=== PATIENT | male | born 1970 | race Caucasian/White ===

== ENCOUNTER 2016-12-06 08:09 | Day surgery (SDC) | payer OTHER ==
[2016-12-05 12:21] VITALS: BMI 24.1
[~2016-12-06 08:09] MED LIST: LACTATED RINGERS 1,000 ML IV SCH
[2016-12-06 08:39] VITALS: RESP 16; TEMP 97.4
[2016-12-06] MEDS ORDERED: LIDOCAINE 1% 20 ML VIAL (10MG/ML) FOR IV START INTRADERMA ONE (08:51)
[2016-12-06] MEDS ORDERED: LIDOCAINE 1% INJ 10MG/ML (20 ML MDV) ONE (09:21)
[2016-12-06] MEDS ORDERED: PROPOFOL 10 MG/ML 20 ML VIAL IV ONE (09:21)
--- NOTE | 2016-12-06 09:22 | P.GSHP ---
History of Present Illness H&P Date: 12/06/16 Chief Complaint: GI bleed This a 46-year-old male who presents today for colonoscopy. He's had issues rectal bleeding. Patient is known external hemorrhoids. Past Medical History Additional Past Medical History / Comment(s): migraines, insomnia,hemorrhoids History of Any Multi-Drug Resistant Organisms: None Reported Past Surgical History: No Surgical Hx Reported Past Anesthesia/Blood Transfusion Reactions: No Reported Reaction Past Psychological History: Anxiety Smoking Status: Former smoker Past Alcohol Use History: None Reported Additional Past Alcohol Use History / Comment(s): quit smoking 1998, smoked for about 20 yrs, 1 PPD Past Drug Use History: None Reported - Past Family History Mother Family Medical History: No Reported History Medications and Allergies Home Medications Medication Instructions Recorded Confirmed Type ALPRAZolam [Xanax] 0.5 mg PO DIRECTED PRN 12/05/16 12/06/16 History Fish Oil/Dha/Epa [Fish Oil 1,200 1 each PO DAILY 12/05/16 12/05/16 History mg Fish Oil] Rizatriptan Benzoate [Maxalt] 10 mg PO DIRECTED PRN 12/05/16 12/06/16 History Zolpidem [Ambien] 5 mg PO HS PRN 12/05/16 12/06/16 History Allergies Allergy/AdvReac Type Severity Reaction Status Date / Time codeine Allergy Anaphylaxis Verified 12/06/16 08:39 frovatriptan [From Frova] Allergy Nausea & Verified 12/06/16 08:39 Vomiting Surgical - Exam Vital Signs Temp Pulse Resp BP Pulse Ox 97.4 F L 60 16 149/90 99 12/06/16 08:37 12/06/16 08:37 12/06/16 08:37 12/06/16 08:37 12/06/16 08:37 - General well developed, no distress - Eyes PERRL - ENT normal pinna - Neck no masses - Respiratory normal expansion - Cardiovascular Rhythm: regular - Abdomen Abdomen: soft, non tender Assessment and Plan Plan: GI bleed. We'll perform colonoscopy.
--- NOTE | 2016-12-06 09:47 | P.OP ---
Date of Procedure: 12/06/16 Preoperative Diagnosis: GI bleed Postoperative Diagnosis: Internal and external hemorrhoids Sigmoid colon polyp Procedure(s) Performed: Colonoscopy Anesthesia: MAC Surgeon: Jordy Moreira Pathology: other (Sigmoid colon polyp) Condition: stable Disposition: PACU Description of Procedure: Patient's placed on the endoscopy table in the lateral position. He received IV sedation. Digital rectal exam was performed revealed external and internal hemorrhoids. The flexible colonoscope was then placed patient anus and passed throughout the entire colon. The ileocecal valve was visualized. Cecum, ascending and transverse colon appeared normal. The descending colon was normal. In the sigmoid colon there was a small polyp seen this removed the forcep. Scope was then brought back the rectum and this appeared normal. Scope was then retroflexed and there were internal hemorrhoids noted. Scope was withdrawn from the patient.
[2016-12-06 10:03] VITALS: BP 127/83; PULSE 55
== END 2016-12-06 10:25 | disposition home or self-care (01) ==
LOC: ORWHC2ENDO 08:09
PROVIDERS: ATTEND Surgery
DX: K63.5 Polyp of colon (principal); K64.4 Residual hemorrhoidal skin tags; K64.8 Other hemorrhoids; F41.9 Anxiety disorder, unspecified; G43.909 Migraine, unspecified, not intractable, without status migrainosus; Z88.5 Allergy status to narcotic agent; Z88.8 Allergy status to other drugs, medicaments and biological substances; Z79.899 Other long term (current) drug therapy; Z87.891 Personal history of nicotine dependence
CPT/HCPCS: 88305; 45380; J2001; J2704; 99153

== ENCOUNTER 2016-12-09 09:29 | Day surgery (SDC) | payer OTHER ==
[2016-12-05 12:33] VITALS: BMI 24.1
[~2016-12-09 09:29] MED LIST changes: +DEXAMETHASONE SOD PHOSPHATE 10 MG/ML 1 ML VIAL IV ONE; +HYDROmorphone 1 MG/ML 1 ML SYRINGE IVP PRN; +LIDOCAINE 1% 20 ML VIAL (10MG/ML) FOR IV START INTRADERMA PRN; +MIDAZOLAM 2 MG/2 ML VIAL IV PRN; +NA PHOS,M-B/NA PHOS,DI-BA 133 ML ENEMA RECTAL ONE; +ONDANSETRON 4 MG/2 ML VIAL IVP ONE; +Pre Op ABX Message 1 EACH MISC MISCELLANE ONE; +SCOPOLAMINE 1.5MG/72HR PATCH TRANSDERM ONE
[2016-12-09] MEDS ORDERED: HEPARIN SODIUM,PORCINE 5,000 UNIT/ML 1 ML VIAL SQ ONE (10:03)
--- NOTE | 2016-12-09 10:09 | P.GSHP ---
History of Present Illness H&P Date: 12/09/16 Chief Complaint: GI bleed, hemorrhoids This is a 46-year-old male who presents today for hemorrhoidectomy. Patient has had issues rectal bleeding. He's undergone previous colonoscopy and found have internal and external hemorrhoids. - Constitutional Constitutional: Reports as per HPI Past Medical History Additional Past Medical History / Comment(s): migraines, insomnia,hemorrhoids History of Any Multi-Drug Resistant Organisms: None Reported Past Surgical History: No Surgical Hx Reported Past Anesthesia/Blood Transfusion Reactions: No Reported Reaction Past Psychological History: Anxiety Smoking Status: Former smoker Past Alcohol Use History: None Reported Additional Past Alcohol Use History / Comment(s): quit smoking 1998, smoked for about 20 yrs, 1 PPD Past Drug Use History: None Reported - Past Family History Mother Family Medical History: No Reported History Medications and Allergies Home Medications Medication Instructions Recorded Confirmed Type ALPRAZolam [Xanax] 0.5 mg PO DIRECTED PRN 12/05/16 12/09/16 History Fish Oil/Dha/Epa [Fish Oil 1,200 1 each PO DAILY 12/05/16 12/09/16 History mg Fish Oil] Rizatriptan Benzoate [Maxalt] 10 mg PO DIRECTED PRN 12/05/16 12/09/16 History Zolpidem [Ambien] 5 mg PO HS PRN 12/05/16 12/09/16 History Allergies Allergy/AdvReac Type Severity Reaction Status Date / Time codeine Allergy Anaphylaxis Verified 12/09/16 09:41 frovatriptan [From Frova] Allergy Nausea & Verified 12/09/16 09:41 Vomiting Surgical - Exam Vital Signs Temp Pulse BP Pulse Ox 97.5 F L 52 L 139/88 97 12/09/16 09:49 12/09/16 09:49 12/09/16 09:49 12/09/16 09:49 - General well developed, no distress - Eyes PERRL - ENT normal pinna - Neck no masses - Respiratory normal expansion - Cardiovascular Rhythm: regular - Abdomen Abdomen: soft, non tender - Rectum Hemorrhoids: moderate (Moderate to large internal and external hemorrhoids) Assessment and Plan Plan: Internal and external hemorrhoids. We'll perform hemorrhoidectomy
[2016-12-09] MEDS ORDERED: diphenhydrAMINE 50 MG/ML 1 ML VIAL ONE (10:27)
[2016-12-09] MEDS ORDERED: LIDOCAINE 1% INJ 10MG/ML (20 ML MDV) ONE (10:27)
[2016-12-09] MEDS ORDERED: MIDAZOLAM 2 MG/2 ML VIAL ONE (10:27)
[2016-12-09] MEDS ORDERED: GLYCOPYRROLATE 0.2 MG/ML 2 ML VIAL ONE (10:27)
[2016-12-09] MEDS ORDERED: fentaNYL (PF) 50 MCG/ML 2 ML AMP ONE (10:27)
[2016-12-09] MEDS ORDERED: PROPOFOL 10 MG/ML 20 ML VIAL IV ONE (10:27)
[2016-12-09] MEDS ORDERED: KETAMINE 10 MG/ML 20 ML VIAL ONE (10:27)
[2016-12-09] MEDS ORDERED: BUPIVACAIN-EPI 0.25%-1:200,000 30 ML VIAL SQ ONE (10:54)
[2016-12-09] MEDS ORDERED: GELATIN SPONGE,ABSORB (LARGE) 1 EACH SPONGE TOPICAL ONE (10:56)
--- NOTE | 2016-12-09 11:01 | P.OP ---
Date of Procedure: 12/09/16 Preoperative Diagnosis: Internal and external hemorrhoids Postoperative Diagnosis: Internal and external hemorrhoids Procedure(s) Performed: Internal and external hemorrhoidectomy Anesthesia: MAC, local Surgeon: Jordy Moreira Estimated Blood Loss (ml): 5 Pathology: other (Internal and external hemorrhoids) Condition: stable Disposition: PACU Description of Procedure: Patient's placed on the operative table in the prone jackknife position. He received IV sedation. His perineum was prepped and draped usual sterile fashion. The anus was injected with 30 mL of 1% local Xylocaine. The anus was examined patient had internal and external hemorrhoids. Using the bivalved anal retractor the anus was exposed. And then the left lateral hemorrhoidal column was excised using the Harmonic scissors. The right anterior and right posterior hemorrhoidal columns excised using Harmonic scissors. There is no bleeding seen. The anus was packed with Gelfoam. Patient sent to recovery in stable condition.
[2016-12-09 11:11] VITALS: TEMP 96.8
[2016-12-09 11:31] VITALS: RESP 18
[2016-12-09 12:36] VITALS: BP 145/76; PULSE 58
== END 2016-12-09 13:20 | disposition home or self-care (01) ==
LOC: OR 09:29
PROVIDERS: ATTEND Surgery
DX: K64.4 Residual hemorrhoidal skin tags (principal); K64.8 Other hemorrhoids; F41.9 Anxiety disorder, unspecified; G43.909 Migraine, unspecified, not intractable, without status migrainosus; Z88.5 Allergy status to narcotic agent; Z79.899 Other long term (current) drug therapy; Z87.891 Personal history of nicotine dependence; Z88.8 Allergy status to other drugs, medicaments and biological substances
CPT/HCPCS: 46260; 88304; J2250; J1200; J1644; J1100; J2405; J2001; J3010; J2704; 99152; 99153

== ENCOUNTER → 2022-03-14 | Outpatient (CLI) | payer OTHER ==
[2022-03-14 08:51] VITALS: BP 141/93; PULSE 57; RESP 18
--- NOTE | 2022-03-14 08:53 | P.CON ---
Consult Note - . Consult date: 03/14/22 Assessment/Plan:: HISTORY OF PRESENT ILLNESS: 51 yr old male as a referral from Dr Field presents today with chronic and severe cervical pain secondary to disc bulges, neuroforaminal stenoses, moderate spinal stenosis, spondylosis and facet arthropathy for evaluation. She states pain is 8 out of 10 in intensity, localized to the lower aspects of his cervical spine, dull, achy, sore with radiation of pain to the right trapezius. He also admits to neck tightness and stiffness. Pain is provoked with extension, lateral flexion and rotation. Pain is relieved with medications (Excedrin OTC, Maxalt from Dr. Segura), injections, alternating ice and heat, cannabis use, physical therapy in the past, chiropractic treatments every 3 weeks, daily home stretching regimen, massage therapy integrator with chiropractic treatments every 3 weeks, acupuncture every 2 weeks and rest. PMH: Lipidemia, migraines, MDD, Seasonal Allergies PSH: Denies SH: History of tobacco use. Admits to cannabis use. Denies EtOH use. FH: Noncontributory All: See list Meds: See list REVIEW OF ORGAN SYSTEMS: CONSTITUTIONAL: No fevers or chills. No recent weight loss. HEENT: No visual acuity loss, eye pain, difficulties with hearing. No nosebleeds. No difficulty swallowing. RESPIRATORY: Denies any troubles with breathing or dyspnea on exertion. CARDIOVASCULAR: Denies any chest pain, palpitations, or recent heart attacks. GASTROINTESTINAL: Denies fatty food intolerance. Has change in bowel habits and gas bloat. GENITOURINARY: Denies any blood in urine. Has increased urinary frequency. NEUROLOGICAL: + numbness and tingling along the distal extremities. No seizure disorders or headaches. MUSCULOSKELETAL: + back pain SKIN: No skin cancer. No rash. PSYCHIATRIC: Denies current depression or suicidal thoughts. ENDOCRINE: Denies current thyroid disorders. Denies any blood sugar glucose intolerance. HEME/LYMPHATIC: Denies any lumps and bumps around the neck. History of deep venous thrombosis. ALLERGY/IMMUNOLOGY: No immunoglobulin therapy. No immune deficiencies. BREAST: Denies current breast lumps, pain or nipple discharge. Physical Examinations : Constitutional : Cooperative , not in acute distress . HEENT: Neck supple. No Lymphadenopathy. Normal thyroid size . Eyes no ptosis , no icterus, no photophobia . Hearing intact. Normal oropharynx. No Thrush. Respiratory : Chest clear to auscultations bilaterally. No wheezing. No rhonchi. Cardiovascular : Regular rate and rhythm , S1 / S2. No S3 . No S4. Gastrointestinal : Abdomen soft. No tenderness. Bowel sounds x 4. No organomegaly . Genitourinary : Deferred. Neurologic : Cranial nerve II to XII intact. No focal neurological deficits. Psychiatric : alert & oriented x 3. Matching mood & appropriate affect. Judgment & insight intact. Lymphatic No Lymphadenopathy. Musculoskeletal : Cervical Spine Motor strength in the deltoid and biceps: Normal right side. Normal Left side Motor strength biceps and the wrist ext ensors: Normal right side . Normal left side Motor strength in the triceps muscle: Normal right side. Normal left side Deep tendon reflexes: Normal at the biceps. Normal at Brachioradialis. Normal at triceps Cervical facet loading test: positive R>L Spurling test: positive bilaterally Neck distraction test: positive bilate rally Pernell sign: positive bilaterally Lumbar spine Motor strength lower extremities ,thigh and legs 5/5 Right side , 5/5 Left side Deep tendon reflexes : Normal Knee Jerk. Normal Ankle Jerk Vertebral body tenderness over Lumbar facet Loading Test: positive Right / positive Left Range of motion of the lumbar spine Flexion 30 degrees, extension 10 degrees Straight Leg Raise test: Left/ Right positive at degree Tg test: positive right / positive left. Severe tenderness over the Sacroiliac joint on the Right / Left sides Gaenslen test: positive bilaterally Seated flexion test: positive bilaterally. Imaging: MRI without contrast of the cervical spine from 03/05/22 reviewed. Assessment/ Plan : Cervical spondylosis, cervical DDD Recommendation of BL TFESI C4-C5. Risks, benefits of procedure discussed and patient verbalized understanding. Denies aspirin or anti- coagulant use or medical history of diabetes. All questions answered. I have spent greater than 50 minutes on patient care today. Dr Tsang was available by phone for the evaluation of this patient. The time was used to review the medical records including relevant urine studies and Prescription history (MAPs), review of the available imaging, evaluation and examination of the patient, coordination of care with the medical staff and if applicable referring physicians, as well as creation of the medical record PQRS Measure Charge Sheet Mode of Arrival: Ambulatory - Pain Location Right Neck Non-Pharmacological Interventions: Chiropractic Treatment, Heat, Home Exercise, Ice, Inactivity, Massage, Physical Therapy, Position/Reposition, Stretching Pharmacological Interventions: Block, PRN Medication PQRS Narrative: Smoking Status Former smoker Blood Pressure 141/93 Pain Intensity [Right Neck] 8 Scale Used Numeric (1 - 10) Hx Alcohol Use (MH) No Home Medications: Ambulatory Orders ALPRAZolam [Xanax] 0.5 mg PO DIRECTED PRN 12/05/16 Fish Oil/Dha/Epa [Fish Oil 1,200 mg Fish Oil] 1 each PO DAILY 12/05/16 Rizatriptan Benzoate [Maxalt] 10 mg PO DIRECTED PRN 12/05/16 Zolpidem [Ambien] 5 mg PO HS PRN 12/05/16 HYDROcodone/APAP 7.5-325MG [[place] 7.5] 1 each PO Q4H PRN #60 tab 12/09/16
== END ==
LOC: PNWHC3 08:11
PROVIDERS: ATTEND Anesthesiology
DX: M50.30 Other cervical disc degeneration, unspecified cervical region (principal); M47.812 Spondylosis without myelopathy or radiculopathy, cervical region; G89.29 Other chronic pain; M48.02 Spinal stenosis, cervical region; G43.909 Migraine, unspecified, not intractable, without status migrainosus; Z87.891 Personal history of nicotine dependence; Z88.5 Allergy status to narcotic agent; Z88.6 Allergy status to analgesic agent
CPT/HCPCS: 99211

== ENCOUNTER 2022-04-23 06:54 | Day surgery (SDC) | payer OTHER ==
[2022-04-22 13:24] VITALS: BMI 28.7
[~2022-04-23 06:54] MED LIST changes: -DEXAMETHASONE SOD PHOSPHATE 10 MG/ML 1 ML VIAL IV ONE; -HYDROmorphone 1 MG/ML 1 ML SYRINGE IVP PRN; +LIDOCAINE 1% (10MG/ML) FOR IV START INTRADERMA PRN; -LIDOCAINE 1% 20 ML VIAL (10MG/ML) FOR IV START INTRADERMA PRN; -MIDAZOLAM 2 MG/2 ML VIAL IV PRN; -NA PHOS,M-B/NA PHOS,DI-BA 133 ML ENEMA RECTAL ONE; -ONDANSETRON 4 MG/2 ML VIAL IVP ONE; -Pre Op ABX Message 1 EACH MISC MISCELLANE ONE; -SCOPOLAMINE 1.5MG/72HR PATCH TRANSDERM ONE
[2022-04-23 07:16] VITALS: TEMP 97.3
[2022-04-23] MEDS ORDERED: DEXAMETHASONE SOD PHOSPHATE 10 MG/ML 1 ML VIAL ONE (07:52)
[2022-04-23] MEDS ORDERED: IOPAMIDOL M200 10 ML VIAL ONE (07:52)
[2022-04-23] MEDS ORDERED: MIDAZOLAM 2 MG/2 ML VIAL ONE (07:52)
[2022-04-23] MEDS ORDERED: fentaNYL (PF) 50 MCG/ML 2 ML AMP ONE (07:52)
[2022-04-23] MEDS ORDERED: IV FLUID CONTINUATION 1,000 ML IV ONE (08:15)
--- NOTE | 2022-04-23 08:17 | P.PCN ---
Date of Procedure: 04/23/22 Procedure(s) Performed: PREOPERATIVE DIAGNOSIS: 1-Cervical degenerative disc disease. 2-cervical spondylosis with cervical facet arthropathy POSTOPERATIVE DIAGNOSIS: Same as preoperative diagnoses. PROCEDURE 1. Transforaminal epidural steroid injection under fluoroscopic guidance at bilateral C4-5 level. (Fluoroscopy images stored on file in the radiology Department ) 2. Cervical epidurogram . ANESTHESIA: Local with 1% lidocaine 3 ml , moderate sedation with intravenous Versed 2 mg and fentanyle 100 micrograms. EBL: Minimal PROCEDURE INDICATION: The patient with low back pain and radiculopathy symptoms unresponsive to conservative treatment. PROCEDURE DESCRIPTION / TECHNIQUE: The patient was seen and identified in the preoperative area. Risks, benefits, complications, and alternatives were discussed with the patient. The patient agreed to proceed with the procedure and signed the consent. IV was started, and vital signs were stable. Patient was taken to the OR and time out was completed. The patient was placed in the prone position on procedure table and a pillow was placed under the abdomen to reduce lumbar lordosis. The cervical area was prepped and draped in the usual sterile fashion. Critical pause was taken. Vital signs were closely monitored during the procedure. Conscious sedation was used during the procedure to decrease patient s anxiety. Using oblique fluoroscopy, the chin of the `ShineLeo dog at right C4-5 level was identified, and the skin and deeper tissues just below was localized with 1% lidocaine. Subsequently, a 25-gauge 3.5-inch spinal needle was advanced under a tunneled view fluoroscopic guidance just underneath the chin of the `Heshamy dog at the right C4-5 Under lateral fluoroscopy, the needle was then advanced to the posterior border of the interforaminal space. After negative aspiration of CSF and blood and with no paresthesias, 1 mL Isovue 200 contrast dye was injected excellent epidurogram and outlining of the nerve root Subsequently, 2 mL of block solution containing 10 mg Dexamethasone and 1 mL of 0.9% normal saline PF was injected. Needle was removed and the same procedure was repeated at the left C4-5 level . At the end of the procedure, skin was cleansed, and bandages were applied. COMPLICATIONS:none DISPOSITION / PLANS: The patient was placed in a supine position and transferred to the recovery area in a stable condition for observation. There was no evidence of lower extremity motor or sensory deficit after the procedure. Patient was discharged from the recovery room after meeting discharge criteria. Home discharge instructions were given to the patient by the staff. The patient was reexamined prior to discharge.
[2022-04-23 08:27] VITALS: RESP 16
[2022-04-23 08:31] VITALS: BP 142/71; PULSE 50
--- NOTE | 2022-04-23 14:47 | FL ---
EXAMINATION TYPE: FL guided pain mgmt statistic DATE OF EXAM: 04/23/2022 FLUOROSCOPY Fluoroscopy time of 17 seconds was used during cervical transforaminal epidural injection. 3 image/s document/s the procedure.
== END 2022-04-23 08:44 | disposition home or self-care (01) ==
LOC: ORPAIN 06:54
PROVIDERS: ATTEND Specialist
DX: M47.22 Other spondylosis with radiculopathy, cervical region (principal); M50.10 Cervical disc disorder with radiculopathy, unspecified cervical region
CPT/HCPCS: 64479; J2250; J1100; J3010; Q9966; 64483; 99152

== ENCOUNTER → 2022-05-15 | Outpatient (CLI) | payer OTHER ==
[2022-05-15 09:24] VITALS: BP 167/97; PULSE 48; RESP 18; TEMP 98.3
--- NOTE | 2022-05-15 09:58 | P.PAINPG ---
Objective - Vital Signs Vital signs: Vital Signs Temp 98.3 F 05/15/22 09:15 Pulse 48 L 05/15/22 09:15 Resp 18 05/15/22 09:15 BP 167/97 05/15/22 09:15 Pulse Ox 97 05/15/22 09:15 FiO2 Intake & Output 05/14/22 05/15/22 05/15/22 18:59 06:59 18:59 Weight 90.718 kg PQRS Measure Charge Sheet Mode of Arrival: Ambulatory Comment: A 51 yr old male with a history of severe and chronic neck pain secondary to c ervical degenerative disc diseases and spondylosis with facet arthropathy presents today for evaluation s/p BL TFESI C4-C5. Pt states he experienced 20% pain relief s/p procedure. Pain level is 8/10 in intensity, constant, stabbing/tightness in the base of his neck as well as the lower aspect of his neck w radiation of pain towards the R scalp and the BL shoulders. Pain is provoked by hyperextension, lifting and rotation. Pain is alleviated with PT in the past, massage therapy currently on a semi monthly basis, chiropractic treatments currently on a semi monthly basis, alternating heat & ice, medications (Ibuprofen), topicals, repositioning and rest. Interventional pain procedures completed include BL TFESI C4-C5 Patient is currently on Ibuprofen Patient denies any side effects of the medication(s), denies excessive drowsiness or sleepiness, denies suicidal ideation and reports that the current pain medication is helping to control the pain and improve activities of daily living. Patient denies any motor or sensory deficits. Patient denies any fever or night sweats, denies any change in the bowel movements or urination. Physical Examination: -Constitutional: Cooperative. Not in acute distress . - Neurologic: Cranial nerve II to XII intact. No focal neurological deficits. - Psychatric: Alert & oriented x 3. Matching mood & appropriate affect. Judgment and insight intact. - Musculoskeletal: Cervical spine: R G.O.N. TTP Muscle bulk/ tone/ strength in the bilateral upper extremities normal Vertebral body tenderness to palpation over Spurling test positive Distraction test positive Facet loading test positive Thoracic spine Muscle bulk / tone/ strength in the bilateral paraspinal muscles normal Vertebral body tender to palpation over Facet loading test positive Lumbar spine: Motor bulk/ tone/ strength lower extremities , thigh and legs : 5/5 Deep tendon reflexes : Normal Knee Jerk. Normal Ankle Jerk . Vertebral body tenderness to palpation over Lumbar Facet Loading Test positive Straight Leg Raise: positive at 30 degrees right side/ left side Gaenslen's Test positive Sacral spine : Severe tenderness over the Sacroiliac joint: right side / left side Range of motion: Flexion of the lumbar spine <60 degrees Range of motion: Extension of the lumbar spine <20 degrees Gaenslen's Test positive Eitan's Test positive Tg test: positive right side / left side Thigh Thrust Test Sacral Thrust Test Assessment and plan: Chronic neck pain secondary to degenerative disc disease , spondylosis with facet arthropathy without myelopathy Recommendation of R G.O.N. injection. May need a series of injections for optimal pain relief. Risks, benefits of procedure discussed and pt verbalized understanding. Denies anticoagulant use or medical history of diabetes. All patient questions answered MAPS reviewed and it was appropriate. I have spent less than 30 minutes on patient care today. Dr Tsang was available by phone for the evaluation of this patient. The time was used to review the medical records including relevant urine studies and Prescription history (MAPs), review of the available imaging, evaluation and examination of the patient, coordination of care with the medical staff and if applicable referring physicians, as well as creation of the medical record - Pain Location Bilateral Lower Neck Non-Pharmacological Interventions: Chiropractic Treatment, Heat, Ice, Physical Therapy Pharmacological Interventions: Epidural, PRN Medication, Topical Medication PQRS Narrative: Smoking Status Former smoker Blood Pressure 167/97 Pain Intensity [Bilateral 8 Lower Neck] Scale Used Numeric (1 - 10) Hx Alcohol Use (MH) No Home Medications: Ambulatory Orders Rizatriptan Benzoate [Maxalt] 10 mg PO DIRECTED PRN MDD 2 tabs in 24 hrs 12/05/16 Atorvastatin [Lipitor] 20 mg PO HS 04/22/22 Fluticasone Nasal Penelope [Flonase Nasal Penelope] 1 spray EA NOSTRIL DAILY 04/22/22 Ibuprofen [Motrin Ib] 400 mg PO DIRECTED PRN 04/22/22 Controlled Substance Measures - Controlled Substance Measures Is patient prescribed a controlled substance at discharge?: No
== END ==
LOC: PNWHC3 08:56
PROVIDERS: ATTEND Specialist
DX: M50.30 Other cervical disc degeneration, unspecified cervical region (principal); M47.812 Spondylosis without myelopathy or radiculopathy, cervical region; G89.29 Other chronic pain; Z87.891 Personal history of nicotine dependence; Z88.5 Allergy status to narcotic agent; Z88.6 Allergy status to analgesic agent
CPT/HCPCS: 99211

== ENCOUNTER 2022-06-20 12:37 | Day surgery (SDC) | payer OTHER ==
[2022-06-18 13:58] VITALS: BMI 28.8
[~2022-06-20 12:37] MED LIST changes: -LIDOCAINE 1% (10MG/ML) FOR IV START INTRADERMA PRN
[2022-06-20 13:08] VITALS: TEMP 97.3
[2022-06-20] MEDS ORDERED: ROPIVACAINE 5MG/ML 20ML VIAL ONE (13:08)
[2022-06-20] MEDS ORDERED: DEXAMETHASONE SOD PHOSPHATE 10 MG/ML 1 ML VIAL ONE (13:08)
--- NOTE | 2022-06-20 13:09 | P.PCN ---
Date of Procedure: 06/20/22 Procedure(s) Performed: Right greater occipital nerve block Description of Procedure: Pre-operative diagnosis: occipital neuralgia Post Operative Diagnosis: occipital neuralgia Procedure: Right greater occipital nerve block under ultrasound - Ultrasound used to place needle and avoid vascular structures. Anesthesia: local with 1% lidocaine ANESTHESIA: Medication Administered by: None Sedation Type: None local only Sedation Supervision start time: Sedation Supervision end time: PROCEDURE INDICATION: The patient with neck pain and headache secondary to occipital neuralgea unresponsive to conservative treatments. PROCEDURE DESCRIPTION / TECHNIQUE: The patient was seen and identified in the preoperative area. Risks, benefits, complications, and alternatives were discussed with the patient, the patient agreed to proceed with the procedure and signed the consent. Vital signs remained stable throughout the procedure. Patient was taken to the OR and time out was completed. The patient was placed in the sitting position on the procedure table. The cervical area and occiptial area were prepped with alcohol swab. Critical pause was taken. Vital signs were closely monitored during the procedure. Conscious sedation was used during the procedure to decrease patients anxiety. Right side: Ultrasound was used and the occipital artery was visualized exiting the skull about 2-3 cm lateral and 2cm inferior to the occipital protuberance On the right side. Then after negative aspiration, a 25g needed was introduced under ultrasound, negative aspiration confirmed and then 3 ml of the block solution containing 2.5 ml of PF Ropivaciane 0.5% and dexamethasone (total of 10mg) was injected after negative aspiration. Needle was withdrawn intact. Patient tolerated procedure well. No acute complications.
[2022-06-20] MEDS ORDERED: IV FLUID CONTINUATION 1,000 ML IV ONE (13:20)
[2022-06-20 13:29] VITALS: BP 125/74; PULSE 53; RESP 17
== END 2022-06-20 13:25 | disposition home or self-care (01) ==
LOC: ORPAIN 12:37
PROVIDERS: ATTEND Hospitalist
DX: M54.81 Occipital neuralgia (principal); Z88.5 Allergy status to narcotic agent; Z88.8 Allergy status to other drugs, medicaments and biological substances; Z87.891 Personal history of nicotine dependence
CPT/HCPCS: 64405; 76942; J1100; J2795

== ENCOUNTER 2023-05-07 10:54 | Day surgery (SDC) | payer OTHER ==
[2023-05-07 11:31] VITALS: RESP 16; TEMP 98
[2023-05-07] MEDS ORDERED: PROPOFOL 10 MG/ML 20 ML VIAL IV ONE (12:13)
--- NOTE | 2023-05-07 12:44 | P.PCN ---
Date of Procedure: 05/07/23 Procedure(s) Performed: BRIEF HISTORY: Patient is a 52-year-old pleasant white female scheduled for an elective colonoscopy as a part of screening for colon cancer. PROCEDURE PERFORMED: Colonoscopy with biopsy. PREOPERATIVE DIAGNOSIS: Screening for colon cancer. IV sedation per Anesthesia. PROCEDURE: After informed consent was obtained, the patient, was brought into the endoscopy unit. IV sedation was administered by Anesthesia under continuous monitoring. Digital rectal examination was normal. Initially the Olympus CF-160 flexible video colonoscope was then inserted in the rectum, gradually advanced into the cecum without any difficulty. Careful examination was performed as the scope was gradually being withdrawn. Ileocecal valve and the appendiceal orifice were visualized and appeared normal. Prep was excellent. Mucosa of the cecum, ascending colon, transverse colon, descending colon, sigmoid colon, and rectum appeared normal. Retroflexion was performed in the rectum and there was a 3 mm polyp on the dentate line that was removed by cold biopsy. The patient tolerated the procedure well. IMPRESSION: 3 mm distal rectal polyp on the dentate line status post cold biopsy Rest of the colon appeared normal RECOMMENDATIONS: Findings of this examination were discussed with the patient and family. He was advised to follow with the biopsy results. Recommend repeat screening colonoscopy in 10 years
[2023-05-07] MEDS ORDERED: KETOROLAC 15 MG/ML 1 ML VIAL ONE (12:49)
[2023-05-07 12:56] VITALS: BP 157/82; PULSE 60
[2023-05-07] MEDS ORDERED: KETOROLAC 15 MG/ML 1 ML VIAL IVP ONE ×2 (13:05)
== END 2023-05-07 13:45 | disposition home or self-care (01) ==
LOC: ORWHC2ENDO 10:54
PROVIDERS: ATTEND Internal Medicine Gastroenterology
DX: Z12.11 Encounter for screening for malignant neoplasm of colon (principal); K62.1 Rectal polyp; E78.5 Hyperlipidemia, unspecified; F17.200 Nicotine dependence, unspecified, uncomplicated; G43.909 Migraine, unspecified, not intractable, without status migrainosus; F41.9 Anxiety disorder, unspecified; Z88.5 Allergy status to narcotic agent; Z88.8 Allergy status to other drugs, medicaments and biological substances; Z79.1 Long term (current) use of non-steroidal anti-inflammatories (NSAID); Z79.899 Other long term (current) drug therapy; Z98.890 Other specified postprocedural states
CPT/HCPCS: 88305; 45380; J1885; J2704